=== PATIENT | female | born 1960 | race Caucasian/White ===

== ENCOUNTER → 2016-06-19 | Outpatient (CLI) | payer OTHER ==
[~2016-06-19] MED LIST: ACET-2902 PO; CARV6.2579 PO; DIGO250T73 PO; FURO10VI4 PO; LISI-622 PO; SPIR25 PO
== END | disposition home or self-care (01) ==
LOC: RADPV 09:24
PROVIDERS: ATTEND Internal Medicine Cardiovascular Disease
DX: I50.1 Left ventricular failure, unspecified (principal); I34.0 Nonrheumatic mitral (valve) insufficiency; I07.1 Rheumatic tricuspid insufficiency
CPT/HCPCS: 93306

== ENCOUNTER → 2017-07-17 | Outpatient (CLI) | payer OTHER ==
[2017-07-17 13:01] LABS: BASOPHILS % (AUTO) 0.6 % (0.0-2.0); EOSINOPHILS % (AUTO) 5.9 % (1.0-6.0); HEMATOCRIT 39.6 % (36-46); HEMOGLOBIN 13.5 g/dL (12.0-16.0); LYMPHOCYTES # (AUTO) 1.7 K/uL (1.0-4.8); LYMPHOCYTES % (AUTO) 26.5 % (22.0-44.0); MEAN CORPUSCULAR HEMOGLOBIN 30.2 pg (26.0-34.0); MEAN CORPUSCULAR HGB CONC 34.2 G/dL (31.0-37.0); MEAN CORPUSCULAR VOLUME 88 fL (80-100); MONOCYTES # (AUTO) 0.4 K/uL (0.1-1.0); PLATELET COUNT (AUTO) 287 K/uL (150-450); RED BLOOD CELL COUNT(AUTO) 4.49 MIL/uL (4.00-5.20); RED CELL DISTRIBUTION WIDTH 13.5 % (11.5-14.5)
[2017-07-17 13:34] LABS: ALANINE AMINOTRANSFERASE 31 U/L (12-78); ALKALINE PHOSPHATASE 98 U/L (46-116); ASPARTATE AMINOTRANSFERASE 23 U/L (15-37); BILIRUBIN,TOTAL 0.6 mg/dL (0.1-1.0); CALCIUM, TOTAL 9.3 mg/dL (8.8-10.5); CHLORIDE 104 mmol/L (98-107); CREATININE 0.78 mg/dL (0.60-1.30); FREE T4 (FREE THYROXINE) 0.89 ng/dL (0.76-1.46); GLOMERULAR FILTR. RATE CALC > 60 mL/min (>60); GLUCOSE,RANDOM 104 mg/dL (70-110); POTASSIUM 4.3 mmol/L (3.5-5.1); SODIUM SERUM 139 mmol/L (136-145); THYROID STIMULATING HORMONE 2.14 uIU/mL (0.36-3.74); TOTAL PROTEIN, SERUM 7.9 g/dL (6.4-8.2); UREA NITROGEN, BLOOD 16 mg/dL (7-18)
[2017-07-17 13:40] LABS: ANION GAP 9 mmol/L (8-16); CARBON DIOXIDE 26 mmol/L (22-29)
== END | disposition home or self-care (01) ==
LOC: LABPV 11:26
PROVIDERS: ATTEND Obstetrics & Gynecology
DX: R53.82 Chronic fatigue, unspecified (principal)
CPT/HCPCS: 84439; 84443

== ENCOUNTER → 2017-07-23 | Outpatient (CLI) | payer OTHER ==
[2017-07-23 12:17] LABS: VITAMIN B12 LEVEL 1012 pg/mL (211-911)
[2017-07-23 13:13] LABS: FOLATE SERUM > 24.0 ng/mL (5.4-)
[2017-07-23 20:02] LABS: VITAMIN D,TOTAL (25-0H) 28 ng/mL (30-100)
== END | disposition home or self-care (01) ==
LOC: LABPV 10:19
PROVIDERS: ATTEND Legal Medicine
DX: I10 Essential (primary) hypertension (principal); I34.0 Nonrheumatic mitral (valve) insufficiency
CPT/HCPCS: 82306; 82607; 82746